=== PATIENT | male | born 1950 | race Caucasian/White ===

== ENCOUNTER 2017-12-02 14:34 | Outpatient (CLI) | payer MEDICARE, OTHER ==
--- NOTE | 2017-12-03 09:07 | XRAY Report ---
Procedure Date: 12/02/2017 Accession Number: [id number] / [id number] Procedure: XR - Hand 3 View BILAT CPT Code: FULL RESULT: EXAM: Hand 3 View BILAT DATE: 12/02/2017 3:52 PM CLINICAL HISTORY: BILAT DIP, PRIMARY OSTEOARTHRITIS COMPARISON: None. TECHNIQUE: 3 views each hand. FINDINGS: RIGHT: Bones: Normal. No fractures or bone lesions. Joints: Severe osteoarthritic changes involving the first carpometacarpal joint and the interphalangeal joints. Soft Tissues: Normal. No soft tissue swelling. LEFT: Bones: Normal. No fractures or bone lesions. Joints: Severe osteoarthritic changes involving the first carpometacarpal joint and the interphalangeal joints. Soft Tissues: Normal. No soft tissue swelling. IMPRESSION: Severe bilateral osteoarthritis. RADIA
--- NOTE | 2017-12-03 09:12 | Ultrasound Report ---
Procedure Date: 12/02/2017 Accession Number: [id number] / [id number] Procedure: US - Aorta Screening CPT Code: FULL RESULT: EXAM: Aorta Screening DATE: 12/02/2017 4:19 PM CLINICAL HISTORY: ENCOUNTER FOR SCREENING FOR CARDIOVASCULAR DISORDERS TECHNIQUE: Real-time scanning with sales account representative static images obtained COMPARISON: None FINDINGS: The abdominal aorta is normal in caliber, measuring 2.9 cm proximally, 2.1 cm in the midportion, and 2.3 cm distally. The iliacs are normal in caliber. No free fluid is present. IMPRESSION: No evidence of abdominal aortic aneurysm.
== END 2017-12-02 14:35 | disposition home or self-care (01) ==
LOC: DI 14:34
PROVIDERS: ATTEND Internal Medicine
DX: Z13.6 Encounter for screening for cardiovascular disorders (principal); M19.041 Primary osteoarthritis, right hand; M19.042 Primary osteoarthritis, left hand
CPT/HCPCS: 76706

== ENCOUNTER 2018-06-21 09:50 | Outpatient (CLI) | payer MEDICARE, OTHER | END 2018-06-21 09:51 | disposition home or self-care (01) | LOC: SC 09:50 | PROVIDERS: ATTEND Internal Medicine Pulmonary Disease | DX: G47.33 Obstructive sleep apnea (adult) (pediatric) (principal) | CPT/HCPCS: 99203; G0463; 99212 ==

== ENCOUNTER 2018-06-30 19:24 | Outpatient (CLI) | payer MEDICARE, OTHER | END 2018-06-30 19:25 | disposition home or self-care (01) | LOC: SC 19:24 | PROVIDERS: ATTEND Internal Medicine Pulmonary Disease | DX: G47.33 Obstructive sleep apnea (adult) (pediatric) (principal); G47.61 Periodic limb movement disorder | CPT/HCPCS: 95810 ==

== ENCOUNTER 2018-07-26 09:02 | Outpatient (CLI) | payer MEDICARE, OTHER | END 2018-07-26 09:03 | disposition home or self-care (01) | LOC: SC 09:02 | PROVIDERS: ATTEND Nurse Practitioner Family | DX: G47.33 Obstructive sleep apnea (adult) (pediatric) (principal); G47.61 Periodic limb movement disorder | CPT/HCPCS: 99214; G0463; 99212 ==

== ENCOUNTER 2018-10-13 08:42 | Outpatient (CLI) | payer MEDICARE, OTHER | END 2018-10-13 08:43 | disposition home or self-care (01) | LOC: SC 08:42 | PROVIDERS: ATTEND Nurse Practitioner Family | DX: G47.33 Obstructive sleep apnea (adult) (pediatric) (principal) | CPT/HCPCS: 99214; G0463; 99212 ==

== ENCOUNTER 2019-09-19 16:40 | Outpatient (CLI) | payer MEDICARE, OTHER ==
--- NOTE | 2019-09-19 11:05 | SLEEP CARE CONSULTATION ---
Information from patient questionnaire entered by Elaina Reddy. I have reviewed and concur with the information entered by Elaina Reddy. This document represents the service I personally performed and the decisions made by me, Rosamaria Thornton MD, [facility]. History of Present Illness Service Date and Time: 09/19/2019 1100 Previous diagnosis: Mild, Obstructive Sleep Apnea-Hypopnea Syndrome AHI: 10.9 Reason for follow up: annual (no usage since August - needs supplies) Equipment type: CPAP Equipment obtained from: [facility] HPI additional information: To minimize the risk of COVID-19 exposure, the patient has requested and consented to this video telemedicine visit. The patient also agrees to having his insurance billed. The patient is in [place]. HPI: Mr. Dai was called today to follow up on the nasal CPAP therapy. He was diagnosed to have mild obstructive sleep apnea-hypopnea syndrome. The patient wears a Respironics AmaraView full face mask. He reports using the device nightly and all through the night. The compliance report shows usage in 22 nights out of the past 0 nights, averaging 5.3 hours a night. The > 4 hour compliance rate for the past 30 days is 15.6% (53% last year). He complained of no particular problem with the device such as soreness on the face, dry nose, epistaxis, nasal congestion or headache. He thinks that the pressure of 6 10 cmH2O is comfortable. The average residual AHI is 3.7; and average time in large leak per day is 1.5 hours. The 90th percentile pressure is 7.6 cmH2O. CPAP Compliance Data - Data Reviewed with Patient Average duration of nightly device use: 1h 1m Compliance rate %: 12.8 (needs supplies) Current pressure setting (cmH2O): 6-10 Humidity settin Heated hose settin Average residual AHI: 3.2 Average large leak: 1h 3m Subjective Initial Seltzer Sleepiness Scale score: 9 Allergies and Home Medications Drug allergies reviewed: Yes Home medication list reviewed: Yes Review of Systems Review of systems same as previous: Yes Impression and Plan IMPRESSION: 1. Obstructive Sleep Apnea-Hypopnea Syndrome, mild (AHI was 10.9) with the patient not using his CPAP that much because he sleeps better without it. He has lost weight and is not snoring without the CPAP. PLAN: 1. Continue to use the CPAP on as needed basis. 2. Repeat in-laboratory polysomnography when he is back in town. 3. Contact his durable medical supplier [facility] for new supplies. 4. Return for a follow up in 2 months. Visit Type: Telehealth Video Video Type: 2Checkout Other Participants: Spouse/Significant Other Location of Provider: Home Patient agrees and consents to this telehealth visit type: Yes Time Spent with Patient (minutes): 15 Provider Statement: I spent 100% of the Telehealth Video Call with the patient with greater than 50% spent counseling the patient and coordination of care.
== END 2019-09-19 16:41 | disposition home or self-care (01) ==
LOC: SC 16:40
PROVIDERS: ATTEND Internal Medicine Pulmonary Disease
DX: G47.33 Obstructive sleep apnea (adult) (pediatric) (principal)
CPT/HCPCS: 99212; 99213

== ENCOUNTER 2020-04-12 10:37 | Outpatient (CLI) | payer MEDICARE, OTHER ==
--- NOTE | 2020-04-12 20:10 | Ultrasound Report ---
PROCEDURE: Bladder INDICATIONS: LOWER URINARY TRACT SYMPTOMS TECHNIQUE: Multiple grayscale and color Doppler images of the bladder were acquired. COMPARISON: None. FINDINGS: Prevoid urinary bladder volume measures 260.5 mL. Post void residual volume measured 240.1 mL. The ur inary bladder appears unremarkable. No asymmetric wall thickening or intraluminal mass lesion identif ied. Bilaterally ureteral jets were visualized. Prostate gland measures 3.4 x 3.7 x 5.27 IMPRESSION: Prevoid urinary bladder volume of 260.5 mL with postvoid residual volume of 240.1 mL. Bilateral urete ral jets were visualized. Reviewed by: Tahir Robles MD on 04/12/2020 7:08 PM [facility] Approved by: Tahir Robles MD on 04/12/2020 7:08 PM [facility] Station ID: [id number]
== END 2020-04-12 10:38 | disposition home or self-care (01) ==
LOC: DI 10:37
PROVIDERS: ATTEND Internal Medicine
DX: N40.1 Benign prostatic hyperplasia with lower urinary tract symptoms (principal)
CPT/HCPCS: 76857